=== PATIENT | female | born 1960 | race Caucasian/White ===

== ENCOUNTER 2017-09-12 04:39 | Observation (INO) | END 2017-09-14 14:05 | disposition home or self-care (01) ==

== ENCOUNTER 2017-09-17 15:28 | Outpatient (CLI) | END 2017-09-17 16:53 | disposition home or self-care (01) ==

== ENCOUNTER 2018-08-18 17:39 | Emergency (ER) | payer OTHER ==
[~2018-08-18] VITALS: Ht 157.5 cm; Wt 84.4 kg
[~2018-08-18 17:39] MED LIST: ASPI-817 PO; ATOR40TA68 PO; METO-448 PO
[2018-08-18 17:58] VITALS: BP 138/65; PULSE 94; RESP 21; Ht 157.5 cm; Wt 84.4 kg
[2018-08-18] MEDS ORDERED: AMOX1TAB10 PO (19:52)
--- NOTE | 2018-08-18 20:14 | ERD ---
ER Documentation Chief Complaint Chief Complaint RIGHT FACIAL PAIN/SWELLING X 3 DAYS HPI 57-year-old female with past medical history of hypertension, hyperlipidemia presents with complaint of right facial pain over the past 3 days. Patient describes dull type pain that is constant just below right ear. She otherwise denies ear pain, discharge from ear, pain with movement of jaw, dental pain, recent dental procedure, recent treatment for otitis media, hearing loss, headache, dizziness, pain at occipital parietal region, numbness at site, fever, chills. Does began abruptly, denies recent injury or trauma. She otherwise without complaint and at time examination nontoxic-appearing with normal triage vital signs. ROS All systems reviewed and are negative except as per history of present illness. Medications Home Meds Active Scripts Amoxicillin/Potassium Clav (Amox-Clav 875-125 mg Tablet) 875-125 mg Tab, 1 TAB PO BID for 7 Days, #14 TAB Prov:SPARKLE CRUZ PA-C 08/18/18 Atorvastatin* (Atorvastatin*) 40 Mg Tablet, 40 MG PO HS, #30 TAB Prov:YELITZA PRAJAPATI NP 09/14/17 Reported Medications Metoprolol Tartrate* (Lopressor*) 25 Mg Tab, 25 MG PO BID, #60 TAB 09/12/17 Aspirin* (Aspirin* EC) 81 Mg Tablet.dr, 81 MG PO DAILY, TAB 01/04/14 Allergies Allergies: Coded Allergies: No Known Allergy (Verified , 01/04/14) PMhx/Soc Medical and Surgical Hx: pt denies Surgical Hx History of Surgery: No Anesthesia Reaction: No Hx Neurological Disorder: No Hx Respiratory Disorders: No Hx Cardiac Disorders: Yes (PALPITATION.) Hx Psychiatric Problems: No Hx Miscellaneous Medical Probl: Yes (See EMR for details. ) Hx Alcohol Use: No Hx Substance Use: No Hx Tobacco Use: No Smoking Status: Never smoker Physical Exam Vitals Vital Signs Date Temp Pulse Resp B/P (MAP) Pulse Ox O2 O2 Flow FiO2 Time Delivery Rate 08/18/18 97.7 94 21 138/65 97 17:58 (89) Physical Exam I have reviewed the triage vital signs. Const: Well nourished, well developed, appears stated age Eyes: PERRL, no conjunctival injection HENT: NCAT, Neck supple without meningismus, tenderness to palpation just below right ear, no tenderness with pulling of tragus, very mild swelling, no erythema, SI LT, smile symmetrical, TMs bilaterally clear, no discharge, erythema, bulging, discharge/exudate, no cervical lymphadenopathy CV: RRR, Warm, well-perfused extremities RESP: CTAB, Unlabored respiratory effort GI: soft, non-tender, non-distended, no masses MSK: No gross deformities appreciated Skin: Warm, dry. No rashes Neuro: grossly non focal Psych: Appropriate mood and affect. Procedures/MDM 57-year-old female presents with complaint of right facial pain. Differential diagnosis food sinusitis, acute otitis media, TMJ syndrome, trigeminal neuralgia although unlikely. Low suspicion for acute otitis media, mastoiditis, malignant otitis externa, AOM, herpes. I have low suspicion for acute intracranial process and warranting further emergent care work-up. Patient neurological exam is unremarkable. Rx: [id number] antibiotic prescription Augmentin Disposition: Discharge. If symptoms worsen or persist for 48-72 then pt to fill the prescription. Cautious return precautions discussed w/ full understanding. DISPOSITION PLAN: We discussed follow up with the patient's primary care doctor within 24 to 48 hours. Patient counseled regarding my diagnostic impression and care plan. Prior to discharge all questions answered. Pt agrees with treatment plan and understands strict return precautions. Precautionary instructions provided including instructions to return to the ER if not improving or for any worsening or changing symptoms or concerns. Disclaimer: Inadvertent spelling and grammatical errors are likely due to EHR/dictation software use and do not reflect on the overall quality of patient care. Also, please note that the electronic time recorded on this note does not necessarily reflect the actual time of the patient encounter. Departure Diagnosis: Primary Impression: Facial pain Condition: Stable Patient Instructions: Sinusitis, Abx Tx Additional Instructions: Call your primary care doctor TOMORROW for an appointment during the next 2-3 days.See the doctor sooner or return here if your condition worsens before your appointment time. SPARKLE CRUZ PA-C Aug 18, 2018 20:14
[2018-08-18] MEDS ORDERED: IBUP-1542 PO (20:16)
== END 2018-08-18 20:21 | disposition home or self-care (01) ==
LOC: FTE 17:39
DX: R51 Headache (principal); I10 Essential (primary) hypertension; Z79.82 Long term (current) use of aspirin
CPT/HCPCS: 99283